=== PATIENT | male | born 1970 | race Caucasian/White ===

== ENCOUNTER 2017-06-09 20:15 | Emergency (ER) | payer MEDICAID ==
[~2017-06-09 20:15] MED LIST: COLACE100 MG PO; GEMFIBROZIL600 MG PO; LIPI10 PO; NIA500 PO; NOR10T PO; TORADOL10 MG PO
[2017-06-09 20:54] VITALS: BP 99/69
== END 2017-06-09 20:54 | disposition home or self-care (01) ==
LOC: ED 20:15
DX: S00.12XA Contusion of left eyelid and periocular area, initial encounter (principal); H11.32 Conjunctival hemorrhage, left eye; X58.XXXA Exposure to other specified factors, initial encounter; Y93.89 Activity, other specified; Y92.89 Other specified places as the place of occurrence of the external cause; Y99.8 Other external cause status

== ENCOUNTER 2017-11-04 11:22 | Inpatient (IN) | payer MEDICAID ==
[~2017-11-04] VITALS: Ht 172.7 cm; Wt 78.5 kg
[2017-11-04 11:28] VITALS: Ht 172.7 cm; Wt 78.5 kg
[2017-11-04 12:37] LABS: BASOPHIL % 0.3 % (0-2); PLATELET COUNT 223 x10^3mcL (130-400); RED CELL DISTRIBUTION WIDTH 12.8 % (11.5-14.5)
[2017-11-04 12:39] LABS: CARBON DIOXIDE 23.7 mmol/L (21-32); CHLORIDE SERUM 105 mmol/L (98-107); CREATININE SERUM 0.8 mg/dL (0.7-1.3); GFR1 > 60 mL/min; GLUCOSE SERUM 109 mg/dL (74-106); POTASSIUM SERUM 4.4 mmol/L (3.5-5.1); SODIUM SERUM 140 mmol/L (136-145)
[2017-11-04 12:46] LABS: ALKALINE PHOSPHATASE 91 U/L (46-116); ALT/SGPT 22 U/L (16-63); BILIRUBIN TOTAL 0.33 mg/dL (0.20-1.00); TOTAL PROTEIN, SERUM 6.6 g/dL (6.4-8.2)
[2017-11-04 12:48] LABS: ALBUMIN 3.2 g/dL (3.4-5.0)
[2017-11-04 12:50] LABS: microscopic required? YES; urine erythrocyte NEGATIVE (NEGATIVE)
[2017-11-04 13:08] LABS: LIPASE 8936 IU/L (73-393)
[2017-11-04 13:13] LABS: AST/SGOT 38 U/L (15-37)
[2017-11-04 15:44] VITALS: BP 159/100
[2017-11-04 15:48] LABS: PHOSPHOROUS 3.3 mg/dL (2.5-4.9)
[2017-11-04 15:49] LABS: AMYLASE 737 U/L (25-115); CHOLESTEROL 336 mg/dL (<200); CHOLESTEROL/HDL RATIO 10.5; TRIGLYCERIDES 919 mg/dL (<150)
[2017-11-04 15:50] LABS: HDL CHOLESTEROL 32 mg/dL (40-60)
[2017-11-04 15:59] LABS: T3 TOTAL 0.98 ng/mL
[2017-11-04 16:14] LABS: FREE T4 0.75 ng/dL (0.76-1.46); T4(THYROXINE) 5.9 ug/dL (4.7-13.3)
[2017-11-04 17:16] VITALS: BP 159/100
[2017-11-04 17:41] LABS: AMPHETAMINE QUAL UR NONE DETECTED (See below)
[2017-11-04 18:53] VITALS: BP 120/76
[2017-11-04 21:07] VITALS: BP 109/68
[2017-11-05 05:28] VITALS: BP 131/87
[2017-11-05 09:00] VITALS: BP 115/73
[2017-11-05 11:19] VITALS: BP 115/73
== END 2017-11-05 12:50 | disposition home or self-care (01) | DRG 282 ==
LOC: ED 11:22 → DU 13:56
PROVIDERS: Emergency Medicine; Family Medicine
DX: K85.90 Acute pancreatitis without necrosis or infection, unspecified (principal); N17.0 Acute kidney failure with tubular necrosis; Z90.49 Acquired absence of other specified parts of digestive tract; E78.5 Hyperlipidemia, unspecified; N39.0 Urinary tract infection, site not specified
CPT/HCPCS: 83880; 84439; J2270; J7030; Q9967

== ENCOUNTER 2017-12-05 14:24 | Emergency (ER) | payer MEDICAID ==
[~2017-12-05] VITALS: Ht 175.3 cm; Wt 84.4 kg
[2017-12-05 14:38] VITALS: Ht 175.3 cm; Wt 84.4 kg
[2017-12-05 16:36] LABS: BASOPHIL % 0.3 % (0-2); PLATELET COUNT 238 x10^3mcL (130-400); RED CELL DISTRIBUTION WIDTH 13.2 % (11.5-14.5)
[2017-12-05 16:45] LABS: CALCIUM 8.2 mg/dL (8.5-10.1); CHLORIDE SERUM 105 mmol/L (98-107); CREATININE SERUM 0.9 mg/dL (0.7-1.3); GFR1 > 60 mL/min; GLUCOSE SERUM 115 mg/dL (74-106); POTASSIUM SERUM 3.8 mmol/L (3.5-5.1); SODIUM SERUM 141 mmol/L (136-145)
[2017-12-05 16:49] LABS: ALBUMIN 3.5 g/dL (3.4-5.0); ALKALINE PHOSPHATASE 93 U/L (46-116); ALT/SGPT 32 U/L (16-63); AST/SGOT 17 U/L (15-37); BILIRUBIN TOTAL 0.27 mg/dL (0.20-1.00); LIPASE 216 IU/L (73-393); TOTAL PROTEIN, SERUM 6.8 g/dL (6.4-8.2)
[2017-12-05 17:13] VITALS: BP 122/82
== END 2017-12-05 17:13 | disposition home or self-care (01) ==
LOC: ED 14:24
PROVIDERS: Emergency Medicine
DX: K59.00 Constipation, unspecified (principal); E78.00 Pure hypercholesterolemia, unspecified; Z90.49 Acquired absence of other specified parts of digestive tract
CPT/HCPCS: 36415; J1885

== ENCOUNTER 2018-02-14 07:44 | Emergency (ER) | payer MEDICAID ==
[~2018-02-14] VITALS: Ht 175.3 cm; Wt 86.6 kg
[2018-02-14 07:51] VITALS: Ht 175.3 cm; Wt 86.6 kg
[2018-02-14 08:38] LABS: BASOPHIL % 0.3 % (0-2); PLATELET COUNT 226 x10^3mcL (130-400); RED CELL DISTRIBUTION WIDTH 12.6 % (11.5-14.5)
[2018-02-14 08:39] LABS: CALCIUM 8.2 mg/dL (8.5-10.1); CARBON DIOXIDE 23.7 mmol/L (21-32); CHLORIDE SERUM 105 mmol/L (98-107); CREATININE SERUM 0.8 mg/dL (0.7-1.3); GFR1 > 60 mL/min; GLUCOSE SERUM 120 mg/dL (74-106); POTASSIUM SERUM 4.3 mmol/L (3.5-5.1); SODIUM SERUM 141 mmol/L (136-145)
[2018-02-14 08:51] LABS: ALBUMIN 3.5 g/dL (3.4-5.0); ALKALINE PHOSPHATASE 85 U/L (46-116); TOTAL PROTEIN, SERUM 7.3 g/dL (6.4-8.2)
[2018-02-14 09:11] LABS: LIPASE 4389 IU/L (73-393)
[2018-02-14 09:12] LABS: CHOLESTEROL 298 mg/dL (<200); CHOLESTEROL/HDL RATIO 11.9; HDL CHOLESTEROL 25 mg/dL (40-60); TRIGLYCERIDES 1398 mg/dL (<150)
[2018-02-14 09:13] LABS: AST/SGOT 23 U/L (15-37)
[2018-02-14 09:14] LABS: ALT/SGPT 39 U/L (16-63)
[2018-02-14 10:33] VITALS: BP 110/83
== END 2018-02-14 10:33 | disposition home or self-care (01) ==
LOC: ED 07:44
PROVIDERS: Emergency Medicine
DX: K85.90 Acute pancreatitis without necrosis or infection, unspecified (principal); E78.1 Pure hyperglyceridemia; E78.00 Pure hypercholesterolemia, unspecified; Z90.49 Acquired absence of other specified parts of digestive tract
CPT/HCPCS: J1885; J2405; J7030

== ENCOUNTER 2018-03-01 13:52 | Emergency (ER) | payer MEDICAID ==
[~2018-03-01] VITALS: Ht 170.2 cm; Wt 86.2 kg
[2018-03-01 14:03] VITALS: BP 140/81; Ht 170.2 cm; Wt 86.2 kg
== END 2018-03-01 14:30 | disposition left against medical advice (07) ==
LOC: ED 13:52
DX: Z53.21 Procedure and treatment not carried out due to patient leaving prior to being seen by health care provider (principal)

== ENCOUNTER 2018-04-08 15:04 | Emergency (ER) | payer MEDICAID ==
[~2018-04-08] VITALS: Ht 170.2 cm; Wt 85.7 kg
[2018-04-08 15:20] VITALS: BP 120/91; Ht 170.2 cm; Wt 85.7 kg
== END 2018-04-08 17:05 | disposition left against medical advice (07) ==
LOC: ED 15:04
DX: Z53.21 Procedure and treatment not carried out due to patient leaving prior to being seen by health care provider (principal)